=== PATIENT | female | born 1955 | race Caucasian/White ===

== ENCOUNTER 2019-01-11 06:00 | Outpatient (RCR) | payer MEDICARE, SELFPAY | END 2019-02-10 00:01 | LOC: SPT 06:00 | PROVIDERS: Family Provider Registered Nurse; Visit Provider Specialist | DX: Z47.1 Aftercare following joint replacement surgery (principal); Z96.652 Presence of left artificial knee joint; M25.662 Stiffness of left knee, not elsewhere classified; M25.562 Pain in left knee | CPT/HCPCS: 97110 ×5 ==

== ENCOUNTER → 2019-02-23 12:00 | Outpatient (BNVA) | payer MEDICARE, SELFPAY | PROVIDERS: Family Provider Registered Nurse; PCP Registered Nurse; Visit Provider Specialist | DX: Z96.653 Presence of artificial knee joint, bilateral (principal); M25.569 Pain in unspecified knee | CPT/HCPCS: 73560; 73565 ==

== ENCOUNTER → 2019-07-01 09:43 | Outpatient (BNVA) | payer MEDICARE, SELFPAY | PROVIDERS: Family Provider Registered Nurse; PCP Registered Nurse; Visit Provider Specialist | DX: Z96.653 Presence of artificial knee joint, bilateral (principal) | CPT/HCPCS: 73560; 73565 ==

== ENCOUNTER → 2020-07-06 11:40 | Outpatient (BNVA) | payer MEDICARE, SELFPAY | PROVIDERS: Family Provider Registered Nurse; PCP Registered Nurse; Visit Provider Specialist | DX: Z96.652 Presence of left artificial knee joint (principal) | CPT/HCPCS: 73560; 73565 ==

== ENCOUNTER → 2021-03-01 09:22 | Outpatient (BNVA) | payer MEDICARE, SELFPAY | PROVIDERS: Family Provider Registered Nurse; PCP Registered Nurse; Visit Provider Registered Nurse | DX: M15.9 Polyosteoarthritis, unspecified (principal); R73.9 Hyperglycemia, unspecified; E53.8 Deficiency of other specified B group vitamins; E78.5 Hyperlipidemia, unspecified; E03.9 Hypothyroidism, unspecified; J45.40 Moderate persistent asthma, uncomplicated; M47.896 Other spondylosis, lumbar region; E66.9 Obesity, unspecified | CPT/HCPCS: 80053; 80061; 82607; 83036; 84443; 85025; 86140 ==

== ENCOUNTER → 2021-05-01 10:49 | Outpatient (BNVA) | payer MEDICARE, SELFPAY | PROVIDERS: Family Provider Registered Nurse; PCP Registered Nurse; Visit Provider Surgery | DX: Z12.11 Encounter for screening for malignant neoplasm of colon (principal); Z20.822 Contact with and (suspected) exposure to COVID-19 | CPT/HCPCS: 87635 ==

== ENCOUNTER 2021-05-05 07:51 | Day surgery (SDC) | payer MEDICARE, SELFPAY ==
[2021-05-03 10:32] VITALS: BMI 34.7
--- NOTE | 2021-05-05 08:39 | ANES.PREANE2 ---
Pre-Anesthetic Assessment Height/Weight: Height 1.57 m Weight 86.183 kg Preop Diagnosis: diagnostic Operation Date: 05/05/21 09:30 Proposed Procedures p Colonoscopy 72112/z12.11(Not Applicable) - Jay Muhammad MD Familial anesthetic complications: None Was Beta Tere taken within 24 hours: N/A Was Clonidine taken within 24 hours: N/A Social No alcohol and No tobacco Exam alert, oriented x 3, clear to auscultation bilaterally and regular rate & rhythm Airway Submandibular: within normal limits Cervical ROM: within normal limits Mallampati: Class II Dentition: false Pulmonary Asthma Metabolic Morbid Obesity [facility] [place] Osteoarthritis/DJD Anesthetic Plan ASA status: 2 Anesthesia: MAC Medications/Allergies Home Medications Medication Instructions Recorded Confirmed Last Taken Type albuterol sulfate 90 mcg/actuation 1 inh INHALATION ONCE 02/23/19 05/03/21 Unknown History aerosol inhaler (ProAir HFA) cetirizine 10 mg capsule (Zyrtec) 10 mg PO DAILY 02/23/19 05/03/21 Unknown History baclofen 10 mg tablet 10 mg PO BID 90 Days #180 tab 03/01/21 05/03/21 Unknown Rx aspirin 81 mg tablet,delayed 81 mg PO DAILY 05/03/21 05/03/21 Unknown History release celecoxib 100 mg capsule 100 mg PO BID 05/03/21 05/03/21 Unknown History cyanocobalamin (vitamin B-12) 1,000 mcg IM DIRECTED 05/03/21 05/03/21 Unknown History 1,000 mcg/mL injection solution fluticasone fur. 100 mcg-umeclid 1 inh INHALATION DAILY 05/03/21 05/03/21 Unknown History 62.5 mcg-vilant 25 mcg inhalat.powder (Trelegy Ellipta) fluticasone propionate 50 1 spray INTRANASAL BID 05/03/21 05/03/21 Unknown History mcg/actuation nasal spray,suspension montelukast 10 mg tablet 10 mg PO DAILY 05/03/21 05/03/21 Unknown History Allergies Allergy/AdvReac Type Severity Reaction Status Date / Time No Known Allergies Allergy Verified 05/03/21 10:27 [facility] Anesthesia Medical History Moderate persistent asthma in adult without complication Osteoarthritis Primary osteoarthritis of knees, bilateral Surgical History History of arthroplasty of right knee History of left knee replacement Social History Smoking and tobacco status: never smoked Alcohol intake: never Adopted: No Caregiver/support person: No Lives independently: No Household members: significant other Sexually active: Yes Current gender identity: Male Data Anesthesia Cardiac Studies: No Data to Display
[2021-05-05] MEDS: sodium chloride 0.9% 1,000 ML 30 ML IV (08:43)
[2021-05-05 08:44] VITALS: BP 134/70; PULSE 84; RESP 18; TEMP 36.4; O2SAT 97
--- NOTE | 2021-05-05 09:53 | P.HP_ITS ---
Same Day Surgery H&P Indication for Procedure/HPI DATE OF PROCEDURE: May 05, 2021 CHIEF COMPLAINT/INDICATIONFOR SURGICAL PROCEDURE: colonosocopy PREOP DIAGNOSIS: diagnostic PLANNED PROCEDURE: Operation Date: 05/05/21 09:30 Proposed Procedures p Colonoscopy 18356/z12.11(Not Applicable) - Jay Muhammad MD Medications/Allergies* Home Medications Medication Instructions Recorded Confirmed Type albuterol sulfate 90 mcg/actuation 1 inh INHALATION ONCE 02/23/19 05/05/21 Hist ory aerosol inhaler (ProAir HFA) cetirizine 10 mg capsule (Zyrtec) 10 mg PO DAILY 02/23/19 05/05/21 History aspirin 81 mg tablet,delayed 81 mg PO DAILY 05/03/21 05/05/21 History release celecoxib 100 mg capsule 100 mg PO BID 05/03/21 05/05/21 History cyanocobalamin (vitamin B-12) 1,000 mcg IM DIRECTED 05/03/21 05/05/21 History 1,000 mcg/mL injection solution fluticasone fur. 100 mcg-umeclid 1 inh INHALATION DAILY 05/03/21 05/05/21 History 62.5 mcg-vilant 25 mcg inhalat.powder (Trelegy Ellipta) fluticasone propionate 50 1 spray INTRANASAL BID 05/03/21 05/05/21 History mcg/actuation nasal spray,suspension montelukast 10 mg tablet 10 mg PO DAILY 05/03/21 05/05/21 History Allergies/Adverse Reactions Allergy/AdvReac Type Severity Reaction Status Date / Time No Known Allergies Allergy Verified 05/05/21 08:43 Current Medications: Generic Name Dose Route Start Last Admin Trade Name Freq PRN Reason Stop Dose Admin Sodium Chloride 1,000 mls @ 30 mls/hr 05/05/21 08:15 05/05/21 08:43 Sodium Chloride 0.9% IV 05/06/21 08:14 30 mls/hr .Q24H YUE Administration Pertinent History/Comorbid Conditions* Medical History (Updated 03/21/21 @ 08:23 by YAIR Carreon) Moderate persistent asthma in adult without complication Osteoarthritis Primary osteoarthritis of knees, bilateral Surgical History (Updated 07/08/20 @ 09:55 by Dolores Martinez MD) History of arthroplasty of right knee History of left knee replacement Social History Smoking and tobacco status: never smoked Alcohol intake: never Adopted: No Caregiver/support person: No Lives independently: No Household members: significant other Sexually active: Yes Current gender identity: Male Pertinent Exam Findings alert, oriented x 3 and regular rate & rhythm Recommendations Surgery/Procedure today Coding Level of Care Code Acute [employer] Apprentice for María Srinivasan
[2021-05-05 10:20] VITALS: BP 133/70; PULSE 64; RESP 16; TEMP 36.3; O2SAT 97
--- NOTE | 2021-05-05 10:32 | ANE.PACU2 ---
Inpatient post-anesthesia follow up: Airway intact: Yes Vital signs: Temperature 97.3 F Pulse Rate 64 Respiratory Rate 16 Blood Pressure 133/70 Pulse Oximetry 97 Oxygen Delivery Me thod Room Air Oxygen Flow Rate Fraction of Inspir ed Oxygen Hydration adequate: Yes Nausea and vomiting: No Pain level: 1 Mental status: Baseline
[2021-05-05 10:41] VITALS: BP 118/65; PULSE 61; RESP 18; O2SAT 97
== END 2021-05-05 10:59 | disposition home or self-care (01) ==
PROVIDERS: PCP Registered Nurse; Visit Provider Surgery
PROC: 0DJD8ZZ Inspection of Lower Intestinal Tract, Via Natural or Artificial Opening Endoscopic (ICD-10-PCS; CPT 45378; principal; 2021-05-05 09:30)
DX: Z12.11 Encounter for screening for malignant neoplasm of colon (principal); M17.0 Bilateral primary osteoarthritis of knee; K57.30 Diverticulosis of large intestine without perforation or abscess without bleeding; K64.8 Other hemorrhoids
CPT/HCPCS: 45385; 88305; J2704; J7030

== ENCOUNTER → 2021-05-15 09:08 | Outpatient (BNVA) | payer MEDICARE, SELFPAY | PROVIDERS: PCP Registered Nurse; Visit Provider Surgery | DX: Z12.11 Encounter for screening for malignant neoplasm of colon (principal) | CPT/HCPCS: 99212 ==

== ENCOUNTER 2021-06-05 14:55 | Outpatient (CLI) | payer MEDICARE, SELFPAY ==
--- NOTE | 2021-06-05 15:12 | MM_ITS ---
WS: [id number] BILATERAL 3D TOMOSYNTHESIS DIGITAL SCREENING MAMMOGRAM WITH CAD CLINICAL INFORMATION: SCREENING HISTORY: Screening mammogram. No current complaints. COMPARISON: None. TECHNIQUE: Bilateral CC and MLO views. FINDINGS: Fatty-replaced breasts bilaterally. Incidental lymph nodes along the axillary tails. Incidental punct ate calcifications. Vascular calcification. No suspicious focal mass, asymmetry, calcifications, or a rchitectural distortion. No evidence of malignancy. MM/[place] [id number] IMPRESSION: BI-RADS: 2-Benign FOLLOW UP: 1 Year Follow-up Recommend return to annual screening mammography.
== END 2021-06-05 14:56 | disposition home or self-care (01) ==
LOC: RADSHAW 15:00
PROVIDERS: PCP Registered Nurse; Visit Provider Registered Nurse
DX: Z12.31 Encounter for screening mammogram for malignant neoplasm of breast (principal)
CPT/HCPCS: 77063; 77067

== ENCOUNTER → 2022-07-30 10:42 | Outpatient (BNVA) | payer MEDICARE, SELFPAY | PROVIDERS: PCP Registered Nurse; Visit Provider Specialist | DX: M17.0 Bilateral primary osteoarthritis of knee (principal); Z96.653 Presence of artificial knee joint, bilateral | CPT/HCPCS: 73560; 73565; 99213 ==

== ENCOUNTER → 2024-03-30 15:55 | Outpatient (BNVA) | payer MEDICARE, SELFPAY | PROVIDERS: PCP Registered Nurse; Visit Provider Specialist | DX: Z96.651 Presence of right artificial knee joint (principal); Z96.652 Presence of left artificial knee joint; M17.0 Bilateral primary osteoarthritis of knee | CPT/HCPCS: 73560; 73565; 99214 ==